=== PATIENT | female | born 1995 | race Two or more races ===

== ENCOUNTER 2021-02-18 18:05 | Emergency (ER) | payer OTHER ==
[~2021-02-18] VITALS: Ht 152.4 cm; Wt 55.3 kg
[2021-02-18 18:20] VITALS: BP 115/75
--- NOTE | 2021-02-18 18:57 | NUR ---
25 Y/O FEMALE BIB SELF C/O HEAD ACHE X1 WEEK. INTERMITTENT PAIN 8/10, PRESSURE-LIKE, LOCALIZED. PERRLA. PT STATES NAUSEA, DENIES VOMITING. DENIES ANY FEVER/COUGH/CHILLS. AO4, BREATHING EVEN AND UNLABORED, SKIN WARM AND DRY. BED IN LOWEST POSITION, LOCKED, X1 SIDERAIL UP. PMHX - DENIED NKA
[2021-02-18] MEDS ORDERED: NACL 0.9% 1,000 ML IV ONE (19:00)
[2021-02-18] MEDS ORDERED: ONDANSETRON 4 MG/2 ML VIAL IVP ONE (19:00)
[2021-02-18] MEDS ORDERED: KETOROLAC 30 MG/ML VIAL IVP ONE (19:00)
--- NOTE | 2021-02-18 19:13 | NUR ---
ENDORSEMENT PROVIDED TO LEXI ROMANO AND LEXI ALEXANDRE FOR CONTINUATION OF CARE.
--- NOTE | 2021-02-18 19:26 | NUR ---
ESTABLISHED IV LEFT AC 20 GAUGE
--- NOTE | 2021-02-18 19:46 | NUR ---
TAKEN TO CT BY W/C
--- NOTE | 2021-02-18 19:50 | NUR ---
RETURNED TO CT
--- NOTE | 2021-02-18 20:30 | NUR ---
PT STATES HEADACHE HAS EASED.
[2021-02-18] MEDS ORDERED: IBUP-2213 PO (20:58)
[2021-02-18] MEDS ORDERED: ONDA4TAB PO (20:58)
[2021-02-18] MEDS ORDERED: ACET-8386 PO (20:58)
[2021-02-18 21:08] VITALS: BP 115/75
--- NOTE | 2021-02-18 21:08 | NUR ---
Patient discharged with v/s stable. Written and verbal after care instructions given and explained. Patient alert, oriented and verbalized understanding of instructions. Ambulatory with steady gait. All questions addressed prior to discharge. ID band removed. Patient advised to follow up with PMD. Rx of IBUPROFEN, ZOFRAN, NORCO given. Patient educated on indication of medication including possible reaction and side effects. Opportunity to ask questions provided and answered.
== END 2021-02-18 21:08 | disposition home or self-care (01) ==
LOC: MED 18:05
DX: R51.9 Headache, unspecified (principal); R11.0 Nausea; R42 Dizziness and giddiness
CPT/HCPCS: 70450; 96361; 96374; 96375; 99284; J1885; J2405; J7030